=== PATIENT | female | born 1975 | race Caucasian/White ===

== ENCOUNTER 2018-04-26 19:42 | Emergency (ER) | payer BC ==
[2018-04-26 20:19] VITALS: BP 100/68
--- NOTE | 2018-04-26 20:37 | UC ---
Throat Pain/Nasal Robin HPI - HPI Summary HPI Summary: 42-year-old female presents with 4 day history of nasal congestion, clear nasal drainage, bilateral ear fullness, and maxillary sinus pressure. She has tried using saline rinses, Mucinex, and Benadryl without relief. Denies fever, chills , dizziness, vertigo, tinnitus, hearing loss, sore throat, cough, chest pain, shortness of breath, abdominal pain, nausea, or vomiting. - History of Current Complaint Chief Complaint: UCGeneralIllness Stated Complaint: SINUSES Time Seen by Provider: 04/26/18 20:31 Hx Obtained From: Patient Pain Intensity: 7 - Allergies/Home Medications Allergies/Adverse Reactions: Allergies Allergy/AdvReac Type Severity Reaction Status Date / Time No Known Allergies Allergy Verified 04/26/18 20:18 PMH/Surg Hx/FS Hx/Imm Hx Previously Healthy: Yes - Denies significant PMH - Surgical History Surgical History: Yes Surgery Procedure, Year, and Place: partial hysterectomy. D & C. 2 . right foot - Family History Known Family History: Positive: Non-Contributory - Social History Occupation: Works From/At Home Lives: With Family Alcohol Use: Rare Substance Use Type: None Smoking Status (MU): Never Smoked Tobacco Review of Systems All Other Systems Reviewed And Are Negative: Yes Constitutional: Positive: Fatigue. Negative: Fever, Chills Eyes: Positive: Eye Redness. Negative: Drainage ENT: Positive: Ear Ache, Nasal Discharge, Sinus Congestion, Sinus Pain/ Tenderness. Negative: Sore Throat Respiratory: Negative: Shortness Of Breath, Cough Cardiovascular: Negative: Palpitations, Chest Pain Gastrointestinal: Negative: Abdominal Pain, Vomiting, Diarrhea, Nausea Is Patient Immunocompromised?: No Physical Exam - Summary Physical Exam Summary: GENERAL APPEARANCE: Well developed, well nourished, alert and cooperative, and appears to be in no acute distress. EYES: Bilateral conjunctiva with mild erythema. No discharge. Vision is grossly intact. EARS: External auditory canals and tympanic membranes clear, hearing grossly intact. NOSE: Moderate nasal congestion with moderate nasal erythema and edema. Maxillary sinuses tender to percussion. THROAT: Oral cavity and pharynx normal. No tonsilar inflammation, swelling, exudate, or lesions. Teeth and gingiva in good general condition. NECK: Neck supple, non-tender without lymphadenopathy. CARDIAC: Normal S1 and S2. No S3, S4 or murmurs. Rhythm is regular. There is no peripheral edema, cyanosis or pallor. Extremities are warm and well perfused. Capillary refill is less than 2 seconds. LUNGS: Clear to auscultation and percussion without rales, rhonchi, wheezing or diminished breath sounds. ABDOMEN: Positive bowel sounds. Soft, nondistended, nontender. No guarding or rebound. No masses or hepatosplenomegally. SKIN: Skin normal color, texture and turgor with no lesions or eruptions. Triage Information Reviewed: Yes Vital Signs: Initial Vital Signs Temp 98.2 F 04/26/18 20:13 Pulse 84 04/26/18 20:13 Resp 16 04/26/18 20:13 BP 100/68 04/26/18 20:13 Pulse Ox 99 04/26/18 20:13 Vital Signs Reviewed: Yes Throat Pain/Nasal Course/Dx - Course Assessment/Plan: 42-year-old female presents with 4 day history of nasal congestion, clear nasal drainage, bilateral ear fullness, and maxillary sinus pressure. She has tried using saline rinses, Mucinex, and Benadryl without relief. Denies fever, chills, dizziness, vertigo, tinnitus, hearing loss, sore throat, cough, chest pain, shortness of breath, abdominal pain, nausea, or vomiting. Afebrile. Vital signs stable. Exam revealed moderate nasal congestion with mucosal erythema and edema and maxillary sinus tenderness. Suspect his acute maxillary sinus infection of viral origin. Recommending symptomatically treatment with continued nasal saline rinses, fluticasone nasal spray, and an [id number] decongestant. She is to follow-up with a primary care provider in 7 days if symptoms persist, warning symptoms were reviewed with the patient and she verbalizes understanding. - Differential Dx/Diagnosis Differential Diagnosis/HQI/PQRI: Pharyngitis, Sinusitis, Tonsillitis, URI Provider Diagnosis: Acute sinusitis Discharge - Sign-Out/Discharge Documenting (check all that apply): Patient Departure All imaging exams completed and their final reports reviewed: No Studies - Discharge Plan Condition: Stable Disposition: HOME Prescriptions: Fluticasone NASAL SPRAY 50MCG* [Flonase NASAL SPRAY 50MCG*] 2 spray BOTH NARES DAILY #1 btl Patient Education Materials: Sinusitis (ED) Referrals: Wilmer Edwards MD [Primary Care Provider] - 7 Days (If symptoms persist.) Additional Instructions: Your history and exam are consistent with a sinus infection. Sinus infections without fever are most often caused by a viral infection. Viral infections do not respond to antibiotics and are limited to the treatment of symptoms. Viral infections typically run their course in 7-10 days. Drink plenty of fluids to avoid dehydration especially if you are running any fever. Use a saline rinse kit such as Neti Pot or NeilMed at least twice a day to help thin secretions and promote drainage of the sinuses. Use fluticasone (Flonase) nasal spray 2 sprays each nostril once daily. Use an over the counter decongestant such as Sudafed according to directions to help with congestion. Take over the counter acetaminophen (Tylenol) or ibuprofen (Advil, Motrin) according to directions as needed for pain or fever. Follow up with your primary care provider in 7 days if symptoms persist. Seek immediate medical attention in the emergency room if you have fever greater than 100.5 F despite taking acetaminophen or ibuprofen, have chest pain , difficulty breathing, are unable to swallow, or have any worsening of symptoms. - Billing Disposition and Condition Condition: STABLE Disposition: Home - Attestation Statements Provider Attestation: I was available for consult. This patient was seen by the MAURICIO. The patient was not presented to, seen by, or examined by me. -[place]
== END 2018-04-26 20:49 | disposition home or self-care (01) ==
LOC: UCCORT 19:42
DX: J01.90 Acute sinusitis, unspecified (principal)
CPT/HCPCS: 99212; G0463